=== PATIENT | male | born 1965 | race African-American/Black ===

== ENCOUNTER 2018-11-05 15:30 | Emergency (ER) | payer SELFPAY ==
[~2018-11-05] VITALS: Ht 172.7 cm; Wt 80.0 kg
[2018-11-05] MEDS ORDERED: ALBUTEROL (0.083%) 2.5MG/3ML NEB HHN ONE (16:30)
[2018-11-05] MEDS ORDERED: HYDROCODONE/ACETAMINOPHEN 5/325MG TABLET PO ONE (16:30)
[2018-11-05 17:00] LABS: BASOPHILS % 1.3 % (0.0-2.0); EOSINOPHILS % 1.8 % (0.0-5.0); HEMATOCRIT. 38.5 % (42.0-52.0); HEMOGLOBIN. 13.1 g/dL (14.0-18.0); LYMPHOCYTES % 26.9 % (20.0-50.0); MEAN CORPUSCULAR HEMOGLOBIN 34.3 pg (28.0-32.0); MEAN CORPUSCULAR VOLUME 100.6 fL (80.0-94.0); MEAN PLATELET VOLUME 8.8 fl (7.4-10.4); MONOCYTES % 8.4 % (2.0-8.0); NEUTROPHILS % 61.6 % (40.0-76.0); PLATELET 179 x1000/uL (130-400); RED BLOOD CELL COUNT 3.82 mill/uL (4.7-6.1); RED CELL DISTRIBUTION WIDTH 12.7 % (11.6-14.6)
[2018-11-05 17:06] LABS: CHLORIDE 110 mEq/L (98-107)
[2018-11-05] MEDS ORDERED: IOHEXOL-300 100 ML BOTTLE ONE (19:41)
[2018-11-05 20:33] VITALS: BP 118/81
== END 2018-11-05 20:35 | disposition home or self-care (01) ==
LOC: ER 15:30
DX: S20.219A Contusion of unspecified front wall of thorax, initial encounter (principal); R06.2 Wheezing; V49.88XA Car occupant (driver) (passenger) injured in other specified transport accidents, initial encounter; Y93.89 Activity, other specified; Y92.89 Other specified places as the place of occurrence of the external cause; Y99.8 Other external cause status
CPT/HCPCS: 36415; 71045; 74177; 76705; 80053; 85025; 93005; 94640; 99284; J7611; Q9967; Z7610